=== PATIENT | female | born 1985 | race Caucasian/White ===

== ENCOUNTER 2017-04-27 11:13 | Inpatient (IN) | payer OTHER ==
[~2017-04-27] VITALS: Ht 170.2 cm; Wt 83.5 kg
[2017-04-27 11:23] VITALS: BP 124/82
--- NOTE | 2017-04-27 12:14 | NUR ---
CARDIZEM IV BOLUS GIVEN ORDERED, SLOW IVP.
--- NOTE | 2017-04-27 12:19 | NUR ---
CARDIZEM IV DRIP STARTED AT 5 MG/HR. NOTIFIED DR. COOPER THAT DRIP STARTED AT 5MG/HR INSTEAD OF 10MG/HR DUE TO BP.
[2017-04-27 12:22] LABS: HEMOGLOBIN 16.9 gm/dL (12.0-15.0)
[2017-04-27 12:24] LABS: MCH 29.2 pg (26.0-34.0); MCHC 33.7 g/dL (28.0-37.0); MCV 86.6 fL (80.0-100.0); MPV 9.2 fl. (7.2-11.1); NUCLEATED RBCS 0 /100WBC; PLATELET COUNT* 274 thou/uL (150-400); RBC 5.78 mil/uL (4.20-5.00); RDW-CV 12.9 % (10.5-14.5); WBC 10.6 thou/uL (4.0-11.0)
[2017-04-27 12:24] LABS: AMP/METHAMP Negative (Negative); BARBITURATES Negative (Negative); BENZODIAZEPINES Negative (Negative); COCAINE Negative (Negative); METHADONE Negative (Negative); OPIATES POSITIVE (Negative); PCP Negative (Negative); THC Negative (Negative)
[2017-04-27 12:32] LABS: ANION GAP 9 mmol/L (7-16); BUN 12 mg/dL (7-18); CALCIUM 9.2 mg/dL (8.5-10.1); CHLORIDE 105 mmol/L (98-107); CO2 28 mmol/L (21-32); CREATININE 0.8 mg/dL (0.6-1.3); GLUCOSE 87 mg/dL (70-99); POTASSIUM 3.8 mmol/L (3.5-5.1); SODIUM 142 mmol/L (136-145)
[2017-04-27 12:33] LABS: INR 1.1; PROTIME 10.7 Seconds (9.20-11.50)
[2017-04-27 12:43] LABS: ALBUMIN 4.4 g/dL (3.4-5.0); ALKALINE PHOSPHATASE 168 U/L (46-116); LIPASE 91 U/L (73-393); NT-PRO BRAIN NAT PEPTIDE 295 pg/mL (<300); PHOSPHORUS* 3.8 mg/dL (2.5-4.9); SGOT 10 U/L (15-37); SGPT 17 U/L (30-65); TOTAL BILIRUBIN 0.4 mg/dL (<0.1-1.0); TOTAL PROTEIN 8.7 g/dL (6.4-8.2); TROPONIN-I LEVEL <0.06 ng/mL (<0.06)
[2017-04-27 13:02] LABS: ABSOLUTE BASOPHILS 0.1 thou/uL (0.0-0.2); ABSOLUTE EOSINOPHILS 0.1 thou/uL (0.0-0.7); ABSOLUTE LYMPHOCYTES 3.9 thou/uL (0.8-5.3); ABSOLUTE MONOCYTES 0.7 thou/uL (0.0-1.2); ABSOLUTE NEUTROPHILS 5.7 thou/uL (1.6-8.1); CLUMPED PLTS FEW; PLATELET ESTIMATE ADEQUATE
[2017-04-27 15:30] VITALS: BP 112/86
[2017-04-27 16:00] VITALS: BP 126/77
--- NOTE | 2017-04-27 16:18 | NUR ---
RECIEVED REPORT AT 1525 FROM CORBIN RN IN ER OF EXPECTED TRANSFER-DX: A-FIB WITH RVR- PT ARRIVED TO UNIT VIA CART WITH SBA TO BED @ 1537- PRECISION INSTRUMENT AND TOOL MAKER PLACED ORDERED, TRACING A-FIB IN 110-120- VS 98.0 18 126/77 110 99% ON RA- CARDIZEM INCREASED TO 10MG/HR ORDERED, R/T NOTED INPROVEMENT IN BP AND ELEVATED HR AT THIS TIME- PT A&O X4- CONTINENT OF BOWEL AND BLADDER- UP AD-LAURA WITH STEADY GAIT- LCTA, DIMINISHED IN BASES- RESP EVEN AND UN-LABORED- PT REPORTS DYSPNEA ON EXERTION BUT NOTED TO BE IMPROVED AT THIS TIME- PT REPORTS COUGH TO BE IMPROVED AT THIS TIME WELL- ABDOMEN SOFT/ROUND/NON-TENDER, BS X4 QUADS- PT NOTED TO HAVE BM UPON TRANSFER- NO EDEMA NOTED, SKIN C/D/I- IV NOTED TO LEFT AC WITH CARDIZEM INFUSING ORDERED- PT REPORTS C/O OF HEADACHE UPON ADMISSION TO HAVE BEEN RESOLVED AT THIS TIME- AT SIDE AT TIME OF ADMISSION- CALL LIGHT AND PERSONAL BELONGINGS WITH IN REACH- HOURLY ROUNDS IN PLACE R/T SAFETY/NEEDS- ALL NEEDS MET AT THIS TIME-WCTM
[2017-04-27 18:55] VITALS: BP 105/74
[2017-04-27 20:30] VITALS: BP 99/56
[2017-04-28] VITALS: BP 105/59
[2017-04-28 02:10] LABS: T3 UPTAKE 27 % (24-39)
--- NOTE | 2017-04-28 03:43 | NUR ---
ASSUMED CARE AT 1999, ASSESSMENT CHARTED. PATIENT ALERT/ORIENTED X4, RESTING IN BED. UP AD LAURA IN ROOM. DENIES PAIN OR NEEDS. REFUSING SCD'S. PATIENT QUESTIONING ABOUT /PUMPING WHILE ON CURRENT MEDICATIONS, PHARMACY NOTIFIED AND PATIENT UPDATED. MEDS PER JUN. DR. HA NOTIFIED REGARDING CARDIZEM DRIP, STATES TO DECREASE IT TO 2ML/HR AND TO LET IT RUN CONTINUOUSLY. CALL LIGHT WITHIN REACH, ENCOURAGED TO CALL FOR NEEDS.
[2017-04-28 04:00] VITALS: BP 107/64
[2017-04-28 08:04] VITALS: BP 100/66
--- NOTE | 2017-04-28 09:40 | NUR ---
ASSUMED CARE OF PT THIS AM AROUND 0715- CARIAC MONITOR IN PLACE ORDERED, TRACING SR- CARDIZEM DRIP CONTINUED ORDERED AT 2MH/HR PRESCRIBED- PT A&O X4- UP AD-LAURA IN ROOM, STEADY GAIT NOTED- LCTA, DIMINISHED IN BASES- VSS, O2 SAT 96% ON RA- NO C/O DYSPNEA THIS AM- ABDOMEN SOFT/ROUND/NON-TENDER, BS X4 QUADS- LAST BM REPORTED 04/27/17- IV NOTED TO LEFT AC INTACT WITH CARDIZEM INFUSING ORDERED-GOOD PO INTAKE NOTED THIS AM WITH BREAKFAST- PT DENIES ANY C/O PAIN/DISCOMFORT AT THIS TIME- CALL LIGHT AND PERSOANL BELONGINGS WITH IN REACH- PT MAKES NEEDS KNOWN- ALL NEEDS MET AT THIS TIME-WCTM
--- NOTE | 2017-04-28 15:57 | EKG ---
[place] [address] ELECTROCARDIOGRAM REPORT Name: ROSHNI IZQUIERDO Room: [address] ADM IN .R.#: [id number] Admission: 04/27/17 Attend Phys: Tani Fisher, Discharge: Date of : 83 Report #: [id number] THIS REPORT FOR: //name// [facility] ED Test Date: 2017-04-27 Test Time: 11:22:21 Pat Name: ROSHNI IZQUIERDO Department: Room: [facility] Gender: F Histopathology Technician: ROSANNA : 1985 Requested By: Ashish Red Order Number: [id number] MD: Srikanth Ambrose Measurements Intervals [place] Rate: 120 P: HI: QRS: 32 QRSD: 76 T: 8 QT: 270 QTc: 382 Interpretive Statements Atrial fibrillation Ventricular premature complex Borderline ST depression, diffuse leads Baseline wander in lead(s) V2 No previous ECG available for comparison Electronically Signed On 04-28-2017 15:57:31 CHECK PILOT by Srikanth Ambrose [email or web address] <ELECTRONICALLY SIGNED> By: Patricio Ambrose MD, [facility] 04/28/17 1557 1122 112 Patricio Ambrose MD, [facility] /EPI
[2017-04-28 16:04] VITALS: BP 111/60
--- NOTE | 2017-04-28 17:17 | NUR ---
PT CURRENTLY RESTING IN BED SIDE CHAIR, AT SIDE VISTTING- CADIAC MONITOR IN PLACE AND CONTINUED ORDERED, TRACING SR- IV TO RIGHT AC INTACT AND SL- PT NOTED TO HAVE STARTED PO CARDIZEM AT 1114 THIS SHIFT WITH IV CARDIZEM STOPPED AT 1215- STRESS ECHO ORDERED FOR IN AM PER CARDIOLOGY- GOOD PO INTAKE NOTED WITH MEALS THIS SHIFT- PT DENIES ANY C/O PAIN/DISCOMFORT- CALL LIGHT AND PERSOANL BELONGINGS WITH IN REACH- ALL NEEDS MET AT THIS TIME-WCTM
[2017-04-28 20:15] VITALS: BP 105/59
[2017-04-29] VITALS (7 sets, daily range): BP systolic 102–115; BP diastolic 60–76
--- NOTE | 2017-04-29 05:05 | NUR ---
ASSUMED CARE AT 1930, ASSESSMENT CHARTED. PATIENT ALERT/ORIENTED X4, RESTING IN BED. UP AD LAURA IN ROOM. DENIES PAIN OR NEEDS. REFUSING SCD'S. MEDS PER JUN. CALL LIGHT WITHIN REACH, ENCOURAGED TO CALL FOR NEEDS.
--- NOTE | 2017-04-29 09:40 | NUR ---
CM ASSESSMENT: Pt is A&O. Resides at home with her and children. Independent with ADLs, continues to work FT. No DME. No hx of HH or SNF. Supportive family that is involved in POC. Goal is to dc home once medically stable. Following.
[2017-04-29] MEDS ORDERED: ASPIRIN325 PO (10:43)
[2017-04-29] MEDS ORDERED: CARDIZEM CD120 MG PO (10:43)
[2017-04-29] MEDS ORDERED: PROPAFENONE 15150 MG PO (10:43)
--- NOTE | 2017-04-29 14:56 | 2DMMODE ---
[place] [address] 2 D/M-MODE ECHOCARDIOGRAM Name: ROSHNI IZQUIERDO Room: [address] IN [facility]#: [id number] Admission: 04/27/17 Attend Phys: Tani Saldana Discharge: Date of : 83 Date of Service: 04/29/17 1456 Report #: [id number] THIS REPORT FOR: //name// APPROVED REPORT Study performed: 04/29/2017 11:19:49 EXAM: Comprehensive 2D, Doppler, and color-flow Echocardiogram Patient Location: In-Patient Room #: 201 Status: routine BSA: 1.95 HR: 71 bpm BP: 115/64 mmHg Rhythm: NSR Other Information Study Quality: Good Indications Atrial Fibrillation Dyspnea Palpitations 2D Dimensions LVEF(%): 55.69 (>50%) IVSd: 11.39 (7-11mm) LVOT Diam: 19.21 (18-24mm) LVDd: 39.93 mm PWd: 8.55 (7-11mm) Ascending Ao: 27.35 (22-36mm) LVDs: 28.50 (25-40mm) Aortic Root: 28.04 mm Moore's LVEF: 55.69 % Volumes Left Atrial Volume (Systole) LA ESV Index: 20.40 mL/m2 Aortic Valve AoV Peak Pratik.: 1.32 m/s AO Peak Gr.: 6.97 mmHg LVOT Max P.88 mmHg AO Mean Gr.: 3.90 mmHg LVOT Mean P.35 mmHg LVOT Max V: 1.10 m/s AO V2 VTI: 24.96 cm LVOT Mean V: 0.70 m/s CINTIA (VTI): 2.60 cm2 LVOT V1 VTI: 22.35 [place] [address] 2 D/M-MODE ECHOCARDIOGRAM Name: ROSHNI IZQUIERDO Room: [address] IN ..#: [id number] Admission: 04/27/17 Attend Phys: Tani Saldana Discharge: Date of : 83 Date of Service: 04/29/17 1456 Report #: [id number] Mitral Valve E/A Ratio: 1.04 MV Decel. Time: 221.70 ms MV E Max Pratik.: 0.75 m/s MV PHT: 64.29 ms MVA (PHT): 3.42 cm2 TDI E/Lateral E': 4.69 E/Medial E': 6.25 Medial E' Pratik.: 0.12 m/s Lateral E' Pratik.: 0.16 m/s Pulmonary Valve PV Peak Pratik.: 0.96 m/s PV Peak Gr.: 3.71 mmHg Left Ventricle The left ventricle is normal size. There is normal LV segmental wall motion. There is normal left ventricular wall thickness. Left ventricular systolic function is normal. The left ventricular ejection fraction is within the normal range. LVEF is 55-60%. The left ventricular diastolic function is normal. Right Ventricle The right ventricle is normal size. The right ventricular systolic function is normal. Atria The left atrium size is normal. The right atrium size is normal. Aortic Valve The aortic valve is normal in structure. No aortic regurgitation is present. There is no aortic valvular stenosis. Mitral Valve The mitral valve is normal in structure. There is no mitral valve regurgitation noted. No evidence of mitral valve stenosis. Tricuspid Valve The tricuspid valve is normal in structure. There is no tricuspid valve regurgitation noted. Pulmonic Valve The pulmonary valve is normal in structure. There is no pulmonic [place] [address] 2 D/M-MODE ECHOCARDIOGRAM Name: ROSHNI IZQUIERDO Room: [address] IN [facility]#: [id number] Admission: 04/27/17 Attend Phys: Tani Saldana Discharge: Date of : 83 Date of Service: 04/29/17 1456 Report #: [id number] Great Vessels The aortic root is normal in size. IVC is normal in size and collapses with >50% inspiration Pericardium There is no pericardial effusion. <Conclusion> The left ventricle is normal size. There is normal left ventricular wall thickness. Left ventricular systolic function is normal. The left ventricular ejection fraction is within the normal range. LVEF is 55-60%. The left ventricular diastolic function is normal. The right ventricle is normal size. The left atrium size is normal. The aortic valve is normal in structure. The mitral valve is normal in structure. The tricuspid valve is normal in structure. IVC is normal in size and collapses with >50% inspiration There is no pericardial effusion. There is normal LV segmental wall motion. <ELECTRONICALLY SIGNED> By: Vick Sanabria MD, FACC 04/29/17 1456 1456 1456 Vick Sanabria MD, FACC /INF
--- NOTE | 2017-04-29 16:28 | EXE ---
[place] [address] STRESS ECHOCARDIOGRAM Name: ROSHNI IZQUIERDO Room: [address] IN [facility].#: [id number] Admission: 04/27/17 Attend Phys: Tani Saldana Discharge: Date of : 83 Date of Service: 04/29/17 1513 Report #: [id number] THIS REPORT FOR: //name// APPROVED REPORT Exam: Stress Echocardiogram Indication: Atrial Fibrillation, Dyspnea Patient Location: In-Patient Stress Nurse: Shakira Stiles RN Room #: [facility] Supervising Physician: Vish Sr MD Status: routine Ht: 5 ft 7 in HR: 76 bpm BP: 101/57 mmHg Procedure The patient underwent an Exercise Stress Test using the Jose Protocol. Blood pressure, heart rate, and EKG were monitored. An Echocardiogram was performed by survey data technician in four stages in quad fashion. At peak stress, four selected images were obtained and placed side by side with resting images for comparison. Stress Test Details Stress Test: Exercise stress testing was performed using a Jose protocol. HR Resting HR: 76 bpm Max Heart Rate (APMHR): 188 bpm Max HR Achieved: 176 bpm Target HR (85% APMHR): 159 bpm % of APMHR: 93 Recovery HR: 81 bpm BP Resting BP: 101/57 mmHg Max BP: 146/66 mmHg Recovery BP: 106/60 mmHg ECG Clinical Reason for Termination: Completed protocol, Maximal effort Exercise duration: 8 min 59 sec Highest Stage Achieved: Stage 3: 3.4 mph at 14% grade. Exercise capacity: 10.16 [place] [address] STRESS ECHOCARDIOGRAM Name: ROSHNI IZQUIERDO Room: [address] IN [facility]#: [id number] Admission: 04/27/17 Attend Phys: Tani Saldana Discharge: Date of : 83 Date of Service: 04/29/17 1513 Report #: [id number] Pre-Stress Echo The resting Echocardiogram showed normal left ventricular contractility with an estimated Ejection Fraction of about 55-60%. Normal wall motion in all segments on baseline images. Post-Stress Echo The stress Echocardiogram showed normal left ventricular contractility with an estimated Ejection Fraction of about >70%. Normal augmentation of wall motion in all segments on post stress images. Clinical Normal augmentation of myocardial wall segments using a 17 segment model. Conclusion Clinical Response: Non-ischemic Exercise Capacity: Average Stress ECG Response: Indeterminant Stress Echo Images: Non-ischemic The left ventricle is normal in size and wall thickness in both the rest and stress images. Other Information Study Quality: Good <Conclusion> The left ventricle is normal in size and wall thickness in both the rest and stress images. <ELECTRONICALLY SIGNED> By: Vick Sanabria MD, [facility] 04/29/17 1513 1513 1513 Vick Sanabria MD, [facility] /INF
--- NOTE | 2017-04-29 16:30 | NUR ---
RECEIVED REPORT FROM NOC RN. VS OBTAINED. ASSESSMENT COMPLETE. MEDS PER JUN. PT NPO FOR STRESS/ECHO TODAY IN NUC MED. SR ON TELE MONITOR. NEEDED ITEMS AND CALL LIGHT WITHIN REACH. ROOM UNCLUTTERED WITH PATHWAY CLEAR TO BATHROOM. PT UP AD LAURA IN ROOM WITH STEADY GAIT. PT ASKS QUESTIONS ABOUT CARDIAC MEDS AND . CONTACTED MICHAEL MCCOY, CARDIOLOGY MP, TO CLARIFY RECS FOR . REINFORCED TEACHING THAT IT IS NOT RECOMMENDED FOR PT TO BREASTFEED BABY WITH NEW MEDS. PT INDICATES UNDERSTANDING AND ACCEPTANCE OF TEACHING. PT TO NUC MED FOR STRESS/ECHO AND RETURNED TO ROOM. CARDIOLOGY REHAB OFFICE COORDINATOR STATES THAT PT IS CLEARED TO BE DISCHARGED TESTS NOW COMPLETE. DISCHARGE ORDERS COMPLETE. DISCHARGE INSTRUCTIONS REVIEWED WITH PT AND SPOUSE. ANSWERED QUESTIONS TO PT/SPOUSE SATISFACTION. IV AND TELE MONITOR DC'D. PT IN POSSESSION OF ALL BELONGINGS. PT LEFT UNIT VIA WC AND NURSING STAFF. SPOUSE TO TRANSPORT PT HOME VIA CAR.
--- NOTE | 2017-04-30 15:01 | CON ---
[address] [address] CONSULTATION Name: ROSHNI IZQUIERDO Room: [address] IN M.R.#: [id number] Admission: 04/27/17 Attend Phys: Tnai Fisher, Discharge: 04/29/17 Date of : 83 Report #: [id number] THIS REPORT FOR: //name// CC: Tani Tomlinson HISTORY OF PRESENT ILLNESS: I was asked by Dr. Fisher to see this 31-year-old white female in cardiology consultation for evaluation and treatment of atrial fibrillation that is new onset and with a rapid ventricular response. This lady has never had any cardiac problems. She has never had atrial fibrillation. She has never had any tachycardias. She never had chest pain or shortness of breath to speak of. She has had a URI principally involving her sinuses. She has had a little cough with it, but then Saturday at 6:30 a.m., she developed a racing heart rhythm that was irregular. She came to the ER, was found to be in atrial fibrillation with a controlled ventricular response. She was started on diltiazem drip. Her heart rate was controlled. She was subsequently started on propafenone and converted to normal sinus rhythm last night at 7:00 p.m. She has felt fine since then. She has no cardiac risk factors. She has not been a smoker. Does not have hypercholesterolemia, diabetes, high blood pressure, family history of heart disease, not had kidney disease or any TIAs or CVAs or claudication or open or nonhealing wounds. PAST MEDICAL HISTORY: Remarkable for some eclampsia with her and subsequent was normal. ALLERGIES: She has no known allergies. MEDICATIONS: She takes no medication at home. REVIEW OF SYSTEMS: Includes cough, palpitations, shortness of breath with exercise and wearing glasses. Otherwise, review of systems is negative. Please see our review of system form for details and negatives in review of systems. SOCIAL HISTORY: She is , works for the [employer], has 0-1 alcoholic beverage per week if that. She does not smoke or use illegal drugs. FAMILY HISTORY: Her father had 2 stents in the last year. She has heart disease in both grandmothers. Uncles have heart disease. She had 2 paternal uncles who suddenly. PHYSICAL EXAMINATION: GENERAL: She presents as a well-developed, well-nourished, white female in no acute distress. VITAL SIGNS: Pulse is 75 and regular, blood pressure is 107/64, respirations 16 and regular, temperature is 97.9. HEENT: Head is atra[place] [address] CONSULTATION Name: SRINI IZQUIERDONITA BARRON Room: [address] IN M.R.#: [id number] Admission: 04/27/17 Attend Phys: Tani Fisher, Discharge: 04/29/17 Date of : 83 Report #: [id number] NECK: Supple. There is no jugular venous distention or hepatojugular reflux. Thyroid is not enlarged. There is no adenopathy. SKIN: Warm and dry. Mucous membranes are moist. LUNGS: Clear to auscultation and percussion. HEART: Revealed normal first and second heart sound. There is soft S4. There is no S3. There are no murmurs, rubs, thrills, heaves or gallops. PMI is not displaced. ABDOMEN: Soft, flat, nontender, no palpable masses, no organomegaly. EXTREMITIES: Reveal no cyanosis, clubbing or edema. NEUROLOGIC: The patient mentated normally, talked normally and moved all extremities normally. IMAGING: There was a CT angio of the chest that was negative. Chest x-ray was negative. LABORATORY DATA: Her EKG initially showed atrial fibrillation with rapid ventricular response and was otherwise fairly unremarkable. EKG from last night after she converted to sinus rhythm was normal. IMPRESSION: Paroxysmal atrial fibrillation with rapid ventricular response that has now converted to sinus rhythm. RECOMMENDATION: She should remain on the diltiazem by mouth and propafenone. She should get an echo and a stress echo. Thank you very much for asking me to see the patient. If there are any questions, please feel free to contact me. <ELECTRONICALLY SIGNED> By: Patricio Ambrose MD, FACC 04/30/17 1501 1111 [id number]. Srikanth Ambrose MD, FACC /nt
--- NOTE | 2017-04-30 17:33 | EKG ---
[place] [address] ELECTROCARDIOGRAM REPORT Name: IZQUIERDOROSHNI BARRON Room: [address] DIS IN M.R.#: [id number] Admission: 04/27/17 Attend Phys: Tani Fisher, Discharge: 04/29/17 Date of : 83 Report #: [id number] THIS REPORT FOR: //name// [facility] Test Date: 2017-04-27 Test Time: 18:44:12 Pat Name: ROSHNI IZQUIERDO Department: Room: [address] Gender: F Armed Security Professional: YOLANDA : 1985 Requested By: Patricio Ambrose Order Number: [id number] Flaco MD: Vish Sr Measurements Intervals [place] Rate: 85 P: 64 MD: 140 QRS: 25 QRSD: 76 T: 30 QT: 341 QTc: 406 Interpretive Statements Sinus rhythm Baseline wander in lead(s) V2 Compared to ECG 04/27/2017 11:22:21 Atrial fibrillation no longer present Ventricular premature complex(es) no longer present ST (T wave) deviation no longer present Electronically Signed On 04-30-2017 17:33:46 [employer]AC[employer] by Vish Sr [email or web address] <ELECTRONICALLY SIGNED> By: Vish Sr MD, FACC 04/30/17 1733 1844 1844 Vish Sr MD, FAC /EPI
== END 2017-04-29 17:23 | disposition home or self-care (01) | DRG 309 ==
LOC: M.ERS 11:13 → M.TBA-ER 14:02 → M.2W 14:02
PROVIDERS: Emergency Medicine; ADMIT Family Medicine
PROC: 5A2204Z Restoration of Cardiac Rhythm, Single (ICD-10-PCS; principal; 2017-04-27)
DX: I48.0 Paroxysmal atrial fibrillation (principal); D68.59 Other primary thrombophilia; R91.1 Solitary pulmonary nodule; Z82.49 Family history of ischemic heart disease and other diseases of the circulatory system; Z82.5 Family history of asthma and other chronic lower respiratory diseases

== ENCOUNTER 2018-08-11 06:07 | Inpatient (IN) | payer OTHER ==
[~2018-08-11] VITALS: Ht 170.2 cm; Wt 81.6 kg
[2018-08-11] VITALS (7 sets, daily range): BP systolic 99–137; BP diastolic 63–95
[~2018-08-11 06:07] MED LIST: ASPIRIN325 PO; CARDIZEM CD120 MG PO; PROPAFENONE 15150 MG PO
[2018-08-11 06:32] LABS: ABSOLUTE BASOPHILS 0.1 thou/uL (0.0-0.2); ABSOLUTE EOSINOPHILS 0.1 thou/uL (0.0-0.7); ABSOLUTE LYMPHOCYTES 2.4 thou/uL (0.8-5.3); ABSOLUTE MONOCYTES 0.5 thou/uL (0.0-1.2); ABSOLUTE NEUTROPHILS 5.1 thou/uL (1.6-8.1); BASOPHILS 0.8 %; EOSINOPHILS 1.5 %; HEMATOCRIT 43.3 % (37.0-47.0); HEMOGLOBIN 14.9 gm/dL (12.0-15.0); LYMPHOCYTES 28.7 %; MCHC 34.4 g/dL (28.0-37.0); MCV 87.1 fL (80.0-100.0); MONOCYTES 6.5 %; MPV 9.1 fl. (7.2-11.1); NUCLEATED RBCS 0 /100WBC; PLATELET COUNT* 314 thou/uL (150-400); POLYS 62.5 %; RBC 4.97 mil/uL (4.20-5.00); RDW-CV 13.3 % (10.5-14.5); WBC 8.2 thou/uL (4.0-11.0)
[2018-08-11 06:42] LABS: APTT 35.3 Seconds (25.0-31.3); PROTIME 10.7 Seconds (9.20-11.50)
[2018-08-11 06:49] LABS: ANION GAP 14 mmol/L (7-16); BUN 18 mg/dL (7-18); CALCIUM 8.8 mg/dL (8.5-10.1); CHLORIDE 104 mmol/L (98-107); CO2 23 mmol/L (21-32); CREATININE 0.8 mg/dL (0.6-1.3); GLUCOSE 118 mg/dL (70-99); POTASSIUM 3.7 mmol/L (3.5-5.1); SODIUM 141 mmol/L (136-145); TROPONIN-I LEVEL <0.06 ng/mL (<0.06)
[2018-08-11 06:50] LABS: ALBUMIN 3.9 g/dL (3.4-5.0); ALKALINE PHOSPHATASE 92 U/L (46-116); LIPASE 97 U/L (73-393); NT-PRO BRAIN NAT PEPTIDE 127 pg/mL (<300); SGOT 8 U/L (15-37); SGPT 10 U/L (30-65); TOTAL BILIRUBIN 0.4 mg/dL (<0.1-1.0); TOTAL PROTEIN 7.5 g/dL (6.4-8.2)
--- NOTE | 2018-08-11 12:20 | EKG ---
[place] [address] ELECTROCARDIOGRAM REPORT Name: EVIN IZQUIERDOBERLY ANDERSON Room: [address] ADM IN M.R.#: [id number] Admission: 08/11/18 Attend Phys: Chasidy Burgos Discharge: Date of : 83 Report #: [id number] THIS REPORT FOR: //name// [facility] ED Test Date: 2018-08-11 Test Time: 06:11:34 Pat Name: ROSHNI IZQUIERDO Department: Room: [facility] Gender: F Parachute Cushion Installer: Susie ESPOSITO : 1985 Requested By: Jeri Tucker Order Number: [id number] MD: Eleuterio Loza Measurements Intervals [place] Rate: 140 P: MO: QRS: 41 QRSD: 73 T: -27 QT: 268 QTc: 409 Interpretive Statements Atrial fibrillation Repol abnrm suggests ischemia, diffuse leads Baseline wander in lead(s) I,II,aVR,aVL Compared to ECG 04/27/2017 18:44:12 Possible ischemia now present Sinus rhythm no longer present Electronically Signed On 08-11-2018 12:20:39 CDT by Eleuterio Loza [email or web address] <ELECTRONICALLY SIGNED> By: Eleuterio Loza MD, FACC 08/11/18 1220 0611 0611 Eleuterio Loza MD, FAC /EPI
--- NOTE | 2018-08-11 15:29 | EKG ---
[place] [address] ELECTROCARDIOGRAM REPORT Name: EVIN IZQUIERDOBERLY ANDERSON Room: [address] ADM IN .R.#: [id number] Admission: 08/11/18 Attend Phys: Chasidy Burgos Discharge: Date of : 83 Report #: [id number] THIS REPORT FOR: //name// [facility] ED Test Date: 2018-08-11 Test Time: 07:25:43 Pat Name: ROSHNI IZQUIERDO Department: Room: [facility] Gender: F Parking Cashier: MS : 1985 Requested By: Scott Parra Order Number: [id number] MD: Eleuterio Loza Measurements Intervals [place] Rate: 83 P: NE: QRS: 31 QRSD: 84 T: 12 QT: 333 QTc: 392 Interpretive Statements Atrial fibrillation Compared to ECG 08/11/2018 06:11:34 rate slowed Electronically Signed On 08-11-2018 15:29:11 CDT by Eleuterio Loza [email or web address] <ELECTRONICALLY SIGNED> By: Eleuterio Loza MD, [facility] 08/11/18 1529 D: [id number] 4 Eleuterio Loza MD, FACC /EPI
--- NOTE | 2018-08-11 17:04 | 2DMMODE ---
[place] [address] 2 D/M-MODE ECHOCARDIOGRAM Name: ROSHNI IZQUIERDO Room: [address] IN [facility]#: [id number] Admission: 08/11/18 Attend Phys: Zackary Vogel Discharge: Date of : 83 Date of Service: 08/11/18 1703 Report #: [id number] THIS REPORT FOR: //name// APPROVED REPORT Study performed: 08/11/2018 15:08:04 EXAM: Comprehensive 2D, Doppler, and color-flow Echocardiogram Patient Location: In-Patient Room #: [facility] Status: 3 BSA: 1.89 HR: 80 bpm BP: 106/69 mmHg Rhythm: NSR Other Information Study Quality: Good Indications Atrial Fibrillation 2D Dimensions IVSd: 9.62 (7-11mm) LVOT Diam: 20.01 (18-24mm) LVDd: 38.67 mm PWd: 10.10 (7-11mm) Ascending Ao: 27.07 (22-36mm) LVDs: 26.43 (25-40mm) Aortic Root: 30.71 mm Volumes Left Atrial Volume (Systole) LA ESV Index: 15.00 mL/m2 Aortic Valve AoV Peak Pratik.: 1.27 m/s AO Peak Gr.: 6.46 mmHg LVOT Max P.14 mmHg AO Mean Gr.: 3.40 mmHg LVOT Mean P.43 mmHg LVOT Max V: 1.13 m/s AO V2 VTI: 20.33 cm LVOT Mean V: 0.71 m/s CINTIA (VTI): 3.34 cm2 LVOT V1 VTI: 21.62 cm Mitral Valve E/A Ratio: 1.19 MV Decel. Time: 211.34 ms MV E Max Pratik.: 0.64 m/[place] [address] 2 D/M-MODE ECHOCARDIOGRAM Name: ROSHNI IZQUIERDO Room: [address] IN [facility]#: [id number] Admission: 08/11/18 Attend Phys: Zackary Vogel Discharge: Date of : 83 Date of Service: 08/11/18 1703 Report #: [id number] MV PHT: 61.29 ms MVA (PHT): 3.59 cm2 TDI E/Lateral E': 3.05 E/Medial E': 5.33 Medial E' Pratik.: 0.12 m/s Lateral E' Pratik.: 0.21 m/s Pulmonary Valve PV Peak Pratik.: 0.93 m/s PV Peak Gr.: 3.47 mmHg Left Ventricle The left ventricle is normal size. There is normal LV segmental wall motion. There is normal left ventricular wall thickness. Left ventricular systolic function is normal. The left ventricular ejection fraction is within the normal range. LVEF is 55-60%. The left ventricular diastolic function is normal. Right Ventricle The right ventricle is normal size. The right ventricular systolic function is normal. Atria The left atrium size is normal. The right atrium size is normal. Aortic Valve The aortic valve is normal in structure. No aortic regurgitation is present. There is no aortic valvular stenosis. Mitral Valve The mitral valve is normal in structure. There is no mitral valve regurgitation noted. No evidence of mitral valve stenosis. Tricuspid Valve The tricuspid valve is normal in structure. Unable to assess PA pressure. Trace tricuspid regurgitation. Pulmonic Valve The pulmonary valve is normal in structure. Trace pulmonic regurgitation. Great Vessels The aortic root is normal in size. IVC is normal in size and collapses >50% [place] [address] 2 D/M-MODE ECHOCARDIOGRAM Name: ROSHNI IZQUIERDO Room: [address] IN [facility]#: [id number] Admission: 08/11/18 Attend Phys: Zackary Vogel Discharge: Date of : 83 Date of Service: 08/11/18 1703 Report #: [id number] Pericardium There is no pericardial effusion. <Conclusion> LVEF is 55-60%. There is normal LV segmental wall motion. There is no aortic valvular stenosis. No aortic regurgitation is present. No evidence of mitral valve stenosis. There is no mitral valve regurgitation noted. <ELECTRONICALLY SIGNED> By: Herbert Paulino MD, FACC 08/11/18 170 02 02 Herbert Paulino MD, FACC /INF
[2018-08-12] VITALS (7 sets, daily range): BP systolic 100–107; BP diastolic 58–65
--- NOTE | 2018-08-12 10:44 | EKG ---
[place] [address] ELECTROCARDIOGRAM REPORT Name: FELECIAROSHNI BARRON Room: [address] ADM IN M.R.#: [id number] Admission: 08/11/18 Attend Phys: Chasidy Burgos Discharge: Date of : 83 Report #: [id number] THIS REPORT FOR: //name// [facility] Test Date: 2018-08-12 Test Time: 08:45:16 Pat Name: ROSHNI IZQUIERDO Department: Room: [address] Gender: F Storage And Backup Administrator: : 1985 Requested By: Eleuterio Loza Order Number: [id number] Reading MD: Herbert Paulino Measurements Intervals [place] Rate: 55 P: 46 MN: 125 QRS: 35 QRSD: 76 T: 29 QT: 385 QTc: 369 Interpretive Statements Sinus rhythm Baseline wander in lead(s) V1 Compared to ECG 08/11/2018 07:25:43 Atrial fibrillation no longer present Electronically Signed On 08-12-2018 10:44:25 CDT by Herbert Paulino [email or web address] <ELECTRONICALLY SIGNED> By: Herbert Paulino MD, [facility] 08/12/18 1044 0845 0845 Herbert Paulino MD, [facility] /EPI
[2018-08-12] MEDS ORDERED: XARELTO20 MG PO (12:05)
[2018-08-12] MEDS ORDERED: CARDIZEM CD120 MG PO ×2 (12:07→12:10)
[2018-08-12] MEDS ORDERED: PROPAFENONE 15150 MG PO (12:08)
--- NOTE | 2018-08-12 15:53 | CON ---
[address] [address] CONSULTATION Name: ROSHNI IZQUIERDO Room: [address] IN M.R.#: [id number] Admission: 08/11/18 Attend Phys: Chasidy Burgos Discharge: 08/12/18 Date of : 83 Report #: [id number] THIS REPORT FOR: //name// CC: [facility] physician/PCP José Miguel Vogel DATE OF SERVICE: 08/11/2018 HISTORY OF PRESENT ILLNESS: The patient is a 32-year-old white female who I was asked to see in the hospital after she was noted to be in atrial fibrillation. The patient initially presented in 04/2017 with atrial fibrillation. She apparently was placed on Cardizem and converted to sinus rhythm. She was seen by my partner, Dr. Sr. She apparently had an echocardiogram and stress test that showed no structural heart disease. He placed her on Rythmol and diltiazem and aspirin. He referred her to Dr. Gilbert for possible ablation. She apparently saw Dr. Gilbert in 01/2018. He had her wear a 30-day monitor that showed no recurrent AFib. He suggested she discontinue the Rythmol and Cardizem. She has done well since that time. She last saw Dr. Sr in April of this year. She notes only a rare episode where her heart will skip a beat. She was doing well until this morning she woke up at 4:00 a.m. and noticed her heart was beating irregular and fast. She denied any chest pain, shortness of breath, lightheadedness. She had had no recent fever, cough or bleeding. She came to the hospital and was admitted. She denies history of a heart murmur. PAST MEDICAL AND SURGICAL HISTORY: She is , last menstrual period was irregular since she has an IUD. She has had wisdom tooth removal. No hypertension, diabetes, hyperlipidemia. MEDICATIONS: Her only medication include Aldactone for acne. ALLERGIES: She has no known drug allergies. FAMILY HISTORY: Her father had AFib. SOCIAL HISTORY: She is . She and her live in [place]. She works for the [employer]. They have 2 small children at home. Nonsmoker, no alcohol, no illicit drug use. REVIEW OF SYSTEMS: She has had no history of stroke, asthma, peptic ulcer disease, liver disease, kidney disease, psychiatric illness, cancer. PHYSICAL EXAMINATION: GENERAL: Revealed a middle-aged female lying in bed. [place] [address] CONSULTATION Name: ROSHNI IZQUIERDO Room: [address]#: [id number] Admission: 08/11/18 Attend Phys: Chasidy Burgos Discharge: 08/12/18 Date of : 83 Report #: [id number] VITAL SIGNS: She had a blood pressure of 110/80, pulse 80 and irregular. She is afebrile. HEENT: She was anicteric, conjunctivae pink. Mucous membranes moist. NECK: Veins nondistended. Neck supple. CHEST: Clear to auscultation. CARDIAC: Irregular rhythm. ABDOMEN: Soft. EXTREMITIES: Had no edema. Posterior tibial pulse 2+ bilaterally. SKIN: Warm, dry. NEUROLOGIC: Nonfocal. LABORATORY DATA: ECG showed AFib with an increased ventricular response rate. Her workup in the Emergency Room today, she had a portable chest x-ray that showed decreased inspiration, otherwise unremarkable. She had a stress echocardiogram in 04/2017 that showed no evidence of ischemia. Her lab work, sodium 141, potassium 3.7, creatinine 0.8, glucose 118. Troponin 0.06. TSH 1.2. White blood cell count 8.2, hemoglobin 14.9. IMPRESSION AND RECOMMENDATIONS: Paroxysmal atrial fibrillation. At this time, I would recommend resuming propafenone and Cardizem. I will consider referring the patient for ablation. <ELECTRONICALLY SIGNED> By: Eleuterio Loza MD, FACC 08/12/18 1553 1308 [id number] Loza MD, FAC /nt
--- NOTE | 2018-08-13 11:01 | EKG ---
[place] [address] ELECTROCARDIOGRAM REPORT Name: ROSHNI IZQUIERDO Room: [address] DIS IN M.R.#: [id number] Admission: 08/11/18 Attend Phys: Chasidy Burgos Discharge: 08/12/18 Date of : 83 Report #: [id number] THIS REPORT FOR: //name// [facility] Test Date: 2018-08-12 Test Time: 12:46:46 Pat Name: ROSHNI IZQUIERDO Department: Room: [address] Gender: F Bariatric Physician: HENRIETTA : [id number] Requested By: Zackary Vogel Order Number: [id number] Flaco MD: Eleuterio Loza Measurements Intervals [place] Rate: 66 P: 44 WV: 122 QRS: 33 QRSD: 80 T: 25 QT: 371 QTc: 389 Interpretive Statements Sinus rhythm Compared to ECG 08/12/2018 08:45:16 rate increased Electronically Signed On 08-13-2018 11:01:21 CDT by Eleuterio Loza [email or web address] <ELECTRONICALLY SIGNED> By: Eleuterio Loza MD, [facility] 08/13/18 1101 1246 1246 Eleuterio Loza MD, FACC /EPI
== END 2018-08-12 14:00 | disposition home or self-care (01) | DRG 309 ==
LOC: M.ERS 06:07 → M.2W 07:40 → M.TBA-ER 07:40 → M.2W 09:00
PROVIDERS: Personal Emergency Response Attendant; ADMIT Internal Medicine
DX: I48.0 Paroxysmal atrial fibrillation (principal); D68.69 Other thrombophilia; E78.5 Hyperlipidemia, unspecified; E11.9 Type 2 diabetes mellitus without complications; I10 Essential (primary) hypertension; Z82.49 Family history of ischemic heart disease and other diseases of the circulatory system; Z79.899 Other long term (current) drug therapy

== ENCOUNTER → 2018-11-17 | Outpatient (CLI) | payer OTHER ==
[~2018-11-17] MED LIST changes: +XARELTO20 MG PO
[2018-11-17 07:51] LABS: HEMATOCRIT 43.4 % (37.0-47.0); MCHC 34.5 g/dL (28.0-37.0); MPV 8.8 fl. (7.2-11.1); RBC 4.99 mil/uL (4.20-5.00); RDW-CV 12.8 % (10.5-14.5)
[2018-11-17 08:02] LABS: ALBUMIN 4.1 g/dL (3.4-5.0); CALCIUM 8.9 mg/dL (8.5-10.1); CREATININE 0.8 mg/dL (0.6-1.3); POTASSIUM 4.1 mmol/L (3.5-5.1); TOTAL BILIRUBIN 0.5 mg/dL (<0.1-1.0); TOTAL PROTEIN 7.7 g/dL (6.4-8.2)
== END ==
LOC: M.LAB 07:30 → M.CT 08:30
PROVIDERS: Internal Medicine Cardiovascular Disease
DX: I48.91 Unspecified atrial fibrillation (principal)

== ENCOUNTER → 2018-12-18 | Outpatient (CLI) | payer OTHER ==
[~2018-12-18] MED LIST changes: +ALDACTONE50 MG PO; +PRADAXA150 MG PO; +TOPROL XL25 MG PO
[2018-12-18 10:27] LABS: URINE BILIRUBIN NEGATIVE (Negative); URINE BLOOD TRACE (Negative); URINE CLARITY CLEAR; URINE COLOR YELLOW; URINE GLUCOSE-RANDOM NEGATIVE (Negative); URINE KETONES NEGATIVE (Negative); URINE NITRITE-REFLEX NEGATIVE (Negative); URINE PROTEIN NEGATIVE (Negative); URINE UROBILINOGEN 0.2 E.U./dl (0.2-1.0)
[2018-12-18 10:28] LABS: URINE LEUKOCYTES-REFLEX 2+ (Negative)
[2018-12-18 10:29] LABS: ABSOLUTE BASOPHILS 0.1 thou/uL (0.0-0.2); ABSOLUTE EOSINOPHILS 0.1 thou/uL (0.0-0.7); ABSOLUTE LYMPHOCYTES 2.2 thou/uL (0.8-5.3); ABSOLUTE MONOCYTES 0.5 thou/uL (0.0-1.2); ABSOLUTE NEUTROPHILS 5.3 thou/uL (1.6-8.1); BASOPHILS 0.7 %; EOSINOPHILS 1.5 %; HEMATOCRIT 46.3 % (37.0-47.0); HEMOGLOBIN 15.7 gm/dL (12.0-15.0); LYMPHOCYTES 26.8 %; MCH 30.2 pg (26.0-34.0); MCV 88.8 fL (80.0-100.0); MONOCYTES 5.8 %; MPV 8.8 fl. (7.2-11.1); NUCLEATED RBCS 0 /100WBC; PLATELET COUNT* 357 thou/uL (150-400); POLYS 65.2 %; RBC 5.21 mil/uL (4.20-5.00); RDW-CV 12.5 % (10.5-14.5); WBC 8.2 thou/uL (4.0-11.0)
[2018-12-18 10:38] LABS: BACTERIA-REFLEX 1-9 Few /HPF (None Seen); CASTS None Seen /LPF (None Seen); CRYSTALS None Seen /LPF (None Seen); MUCUS None Seen strn/LPF (None Seen); SQUAMOUS >10 Many /LPF (0-3); URINE RBC 3-10 Few /HPF (0-2)
[2018-12-18 10:40] LABS: ALBUMIN 4.2 g/dL (3.4-5.0); CALCIUM 9.4 mg/dL (8.5-10.1); CREATININE 0.8 mg/dL (0.6-1.3); POTASSIUM 4.1 mmol/L (3.5-5.1); TOTAL BILIRUBIN 0.4 mg/dL (<0.1-1.0); TOTAL PROTEIN 8.2 g/dL (6.4-8.2)
== END ==
LOC: M.LAB 10:10
PROVIDERS: Internal Medicine Cardiovascular Disease
DX: J98.11 Atelectasis (principal); R42 Dizziness and giddiness